=== PATIENT | male | born 1955 | race Caucasian/White ===

== ENCOUNTER 2022-10-31 08:28 | Outpatient (REF) | payer OTHER, SELFPAY ==
--- NOTE | ~2022-10-31 | CT_ITS ---
EXAMINATION: CT HEAD WITHOUT CONTRAST CLINICAL INFORMATION: Concussion. COMPARISON: None. TECHNIQUE: Contiguous axial imaging was performed from the skullbase to vertex without intravenous administration of contrast. This CT examination was performed using dose optimization techniques as appropriate, variously including the following: *Automated exposure control *Adjustment of mA and/or kV according to patient size (this includes techniques or standardized protocols for targeted exams where dose is matched to indication/reason for exam; i.e. extremities or head) *Use of iterative reconstruction technique DLP: 882 mGy-cm. FINDINGS: There is no evidence of acute intracranial hemorrhage or territorial infarction. No abnormal mass effect or midline shift is seen. Mijares to white matter differentiation is well preserved. No extra-axial fluid collections are identified. Moderate diffuse parenchymal volume loss noted with concordant ex vacuo prominence of the ventricles. There are mild small vessel ischemic changes in the cerebral white matter. The osseous structures and soft tissues are normal. The mastoid air cells and visualized portions of the paranasal sinuses are well aerated. CT/CT head/brain wo IV con IMPRESSION: No acute intracranial pathology.
== END 2022-10-31 08:29 | disposition home or self-care (01) ==
LOC: HO.CT 08:28
PROVIDERS: PCP Internal Medicine; Visit Provider Psychiatry & Neurology Neurology
DX: S06.0X9A Concussion with loss of consciousness of unspecified duration, initial encounter (principal)
CPT/HCPCS: 70450

== ENCOUNTER 2025-03-08 10:03 | Outpatient (AMB) | payer OTHER, SELFPAY ==
--- OUTSIDE RECORDS SUMMARY | 2024-04-15 05:30 | XMS_ITS ---
Author Organization [facility] Address [address] [place] [address] Care Team Providers Care Crusher Feeder Name Role Phone SHIRLENE WATKINS Primary Care Provider REASON FOR VISIT 41/ 2mo Encounters Encounter Location Date Provider Diagnosis [facility] [address] [place] [address] 04/15/2024 SHIRLENE WATKINS Plan Of Treatment No Information Progress Notes * ABDIFATAH FENTONDOB: [birth year] (69 yo M)Acc No.[id number]:04/15/2024 Progress Notes Patient: ABDIFATAH ANTONIO Provider: Brianna WATKINS M.D. :1955 A ge:68 Y S ex:Male Date:04/15/2024 Address:[address] [place], [place] [id number] Subjective: * Chief Complaints: * 4 1/ 2mo Billing Information: * Procedure Codes: * Electronic signature of SHIRLENE WATKINS MD on 03/08/2025 at 12:24 PM EST Sign off status: Pending * Provider: Brianna WATKINS M.D. Date: 0 04/15/2024 Generated for Marga ng/Fadarleneg/eTransmitting on: 1 05/09/2024 12:24 PM EST
--- NOTE | 2025-03-08 10:07 | A.OFFVIS_ITS ---
Intake Visit Reasons: BFT 6m Allergies No Known Allergies Allergy (Verified 03/08/25 10:12) Medication List - Last Reconciled 03/08/25 by Rufina Adkins CNP cholecalciferol (vitamin D3) 50 mcg PO clozapine 200 mg PO QPM clozapine 100 mg PO QAM divalproex 1,000 mg PO BEDTIME levothyroxine 200 mcg PO lorazepam 0.5 mg PO BID PRN metformin 1,000 mg PO BID metoprolol succinate ER 50 mg PO DAILY omega-3 acid ethyl esters 2 caps PO BID omeprazole 20 mg PO DAILY primidone 50 mg PO BEDTIME simvastatin 20 mg PO BEDTIME HPI Comments Details: He was doing okay. Tremor was controlled with primidone. No functional impairment. No difficulty eating, drinking, or swallowing. Numbness to right great toe was about the same. No numbness to LLE. Blood sugar this morning was around 160. He slipped and fell on ice yesterday and landed on left knee. Left knee was still painful today and slightly swollen. Hx of neck pain and stiffness since fall in 10/2022, for which he was taking Advil daily. Had slight numbness in right foot and occasional transient pain. Had some left occipital headaches and some pain in the upper part of his cervical spine in the past. Thinks that his memory is not as sharp. He has 20+ year history of tremors which runs in his family. [facility] Medical History (Updated 03/08/25 @ 10:20 by Rufina Adkins CNP) Mood disorder Hypothyroidism Hyperlipidemia Hypertension Diabetes Family History (Updated 03/08/25 @ 10:12 by Rufina Adkins CNP) Mother Tremor Brother Tremor Review of Systems Const Denies chills, Denies daytime sleepiness, Denies difficulty sleeping, Denies fatigue, Denies fever(s), Denies frequent falls, Denies headache(s), Denies increased appetite, Denies poor appetite, Denies snoring, Denies weakness, Denies weight gain and Denies weight loss Eyes Denies loss of vision ENT Denies vertigo, Denies dizziness, Denies headache(s) and Reports neck pain Card Denies chest pain at rest, Denies chest pain with activity, Denies syncope, Denies leg edema, Denies palpitations, Denies dyspnea and Denies dyspnea on exertion Resp Denies cough, Denies dyspnea, Denies dyspnea on exertion and Denies snoring GI Denies abdominal pain, Denies constipation, Denies heartburn, Denies diarrhea and Denies nausea Denies urinary frequency, Denies urinary incontinence and Denies urinary urgency Musc Denies abnormal gait, Denies back pain, Denies myalgias, Denies arthralgias, Reports neck pain, Reports numbness and Reports tingling Neuro Denies abnormal gait, Denies vertigo, Denies dizziness, Denies syncope, Denies frequent falls, Denies headache(s), Denies lack of coordination, Denies loss of vision, Reports memory loss, Reports numbness, Denies Other visual disturbances, Denies restless legs, Denies seizure-like activity, Reports tingling, Denies paresthesias, Reports tremor(s) and Denies weakness Psych Reports anxiety, Reports depression, Denies auditory hallucinations, Reports memory loss and Denies visual hallucinations Endo Denies fatigue and Denies palpitations Physical Exam Const Other: General Appearance:? normal, in no acute distress. Heart:? S1, S2 normal, no murmurs. Lungs:? clear anteriorly and posteriorly. Musculoskeletal:? normal. Extremities:? L knee slightly swollen. Psych:? alert, oriented, cognitive function intact, cooperative with exam. Neuro Other: Abnormal Neurological Findings:?Medium frequency, low amplitude tremors of extended UE, increased on finger to nose. No rest tremor or rigidity. Walking with cane. Mental Status: alert and oriented X 3. Normal attention, orientation, memory, and affect. Cranial Nerves: Pupils are equal, round, and reactive to light. External ocular muscles are intact. Visual ceballos are full, no ptosis. Face is symmetrical, no facial weakness or droop. Facial sensations are normal. Tongue protrudes in midline. Palate elevates symmetrically. Shoulder shrugging is normal Motor Examination: Normal muscle tone, bulk and strength. No atrophy or fasciculations. No drift of the extended upper extremities. DTR 2+. Plantars are flexor. Sensory Exam: Mild impaired pin prick. Normal light touch, temperature, vibration, and joint-position sensations. Rhomberg sign is absent. Coordination: No ataxia. No titubation. Gait Exam: With cane. Cerebellar Signs: [id number] as above. Extrapyramidal System: Tremor as above. No rigidity with normal facial expressions. No bradykinesia. No bradyphrenia. Normal arm swing and posture. No propulsion or retropulsion. Speech: Normal. Results Reviewed Results Reviewed: 01/07/23 NCV/EMG LE Borderline slowing nerve conduction study in the lower extremities. EMG of the right L4-S1 innervated muscles is consistent with neuropathic changes. Assessment & Plan Assessment & Plan (1) Benign familial tremor: Code(s): G25.0 - Essential tremor Category: Medical Plan: Continue primidone 50mg 1 tablet at bedtime. Follow up in 6 months or sooner as needed. (2) Peripheral neuropathy: Code(s): G62.9 - Polyneuropathy, unspecified Category: Medical Qualifiers: Peripheral neuropathy type: polyneuropathy, unspecified Qualified Code(s): G62.9 - Polyneuropathy, unspecified Plan: Stay physically active, continue to use cane for additional support. (3) Left knee pain: Code(s): M25.562 - Pain in left knee Category: Medical Qualifiers: Chronicity: acute Qualified Code(s): M25.562 - Pain in left knee Plan: He slipped on fell on ice yesterday. Left knee was slightly swollen and painful. XR L knee ordered. Plan . Orders: Orders XR knee LT 3V Today M25.562 - Pain in left knee Medications: New primidone 50 mg PO BEDTIME 90 tabs 1RF 90 days Coding Level of Care Code Est Pt Level 4 (19553) Diagnoses Benign familial tremor G25.0 Peripheral polyneuropathy G62.9 Peripheral neuropathy type: polyneuropathy, unspecified Acute pain of left knee M25.562 Chronicity: acute
--- OUTSIDE RECORDS SUMMARY | 2025-03-08 12:23 | XMS_ITS | Clinical Summary ---
Author Organization [facility] Address [address] [place] [address] Phone Care Team Providers Care Corporate Learning Consultant Name Role Phone Benjamin Merrill MD Primary Care Provider [phone] Allergies Active Allergy Reactions Criticality Noted Date Comments Haloperidol Unknown 11/04/2024 Medications oxyCODONE (ROXICODONE) 5 mg immediate release tabletIndicatio ns:Strain of lumbar region, initial encounter Take 1 tablet (5 mg total) by mouth every 6 (six) hours if needed for severe pain. Max Daily Amount: 20 mg 10 each 5 Active lidocaine 4 % patch Apply 1 patch topically 1 (one) time each day if needed for mild pain. 15 each 5 Active methocarbamoL (ROBAXIN) 500 mg tablet Take 2 tablets (1,000 mg total) by mouth 2 (two) times a day if needed for muscle spasms for up to 14 days. 28 tablet 5 Active Active Problems No known active problems Medical History Medical History Date Comments Diabetes mellitus ([facility] V24, [facility] V28) Sciatica Social History Tobacco Use Types Packs/Day Years Used Date Smoking Tobacco: Never Assessed Sex and Gender Information Value Date Recorded Sex Assigned at Not on file Legal Sex Male 8:18 PM EST Gender Identity Not on file Sexual Orientation Not on file Last Filed Vital Signs Vital Sign Reading Time Taken Comments Blood Pressure 135/95 11/05/2024 6:32 PM EDT Pulse 88 11/05/2024 6:32 PM EDT Temperature 36.8 C (98.2 F) 11/05/2024 3:08 PM EDT Respiratory Rate 16 11/05/2024 6:32 PM EDT Oxygen Saturation 100% 11/05/2024 6:32 PM EDT Inhaled Oxygen Concentration - - Weight 96.2 kg (212 lb) 11/05/2024 3:08 PM EDT Height 170.2 cm (5' 7 ) 11/05/2024 3:08 PM EDT Body Mass Index 33.2 11/05/2024 3:08 PM EDT Plan of Treatment Health Maintenance Due Date Last Done Comments Colorectal Cancer Screening: Colonoscopy 1955 DTaP,Tdap,and Td Vaccines (1 - Tdap) 1976 Pneumococcal Vaccine: 50+ Years (1 of 1 - PCV) 08/31/2007 Zoster Vaccines (1 of 2) 08/31/2007 Abdominal Aortic Aneurysm (AAA) Screen 02/23/2022 Cholesterol Screening (Lipid Panel) 02/23/2022 Hepatitis C Screening 02/23/2022 Medicare Annual Wellness Visit 02/23/2022 Social Influencers of Health Screening 02/23/2022 Falls Risk Assessment 2022 Depression Screening 03/24/2024 COVID-19 Vaccine (3 - 2024-2 6 season) 2024 08/17/2020, 07/26/2020 Influenza Vaccine (#1) 2024 02/05/2024 RSV Immunization Adult Patients (1 - 1-dose 75+ series) 2032 HIB Vaccines Aged Out No longer eligi ble based on patient's age to complete this topic HPV Vaccines Aged Out No longer eligi ble based on patient's age to complete this topic Hepatitis A Vaccines Aged Out No long er eligible based on patient's age to complete this topic Hepatitis B Vaccines Aged Out No long er eligible based on patient's age to complete this topic IPV Vaccines Aged Out No longer eligi ble based on patient's age to complete this topic MMR Vaccines Aged Out No longer eligi ble based on patient's age to complete this topic Meningococcal ACWY Vaccine Aged Out N o longer eligible based on patient's age to complete this topic Meningococcal B Vaccine Aged Out No l onger eligible based on patient's age to complete this topic RSV Immunization Patients Under 20 months Aged Out No longer eligible b ased on patient's age to complete this topic Varicella Vaccines Aged Out No longer eligible based on patient's age to complete this topic Insurance [place] [facility] Member Subscriber Plan / Payer (Ef fective 1899-Present) Name:Zack Fenton Relation to Subscriber:Self Name:Zack Fenton Payer ID:[id number] Group ID:[id number] Type:Not on file Address: [address] [place] [address] [facility] [employer] Member Subscriber Plan / Payer (Ef fective 2024-Present) Name:Zack Fenton Relation to Subscriber:Self Name:Zack Fenton Payer ID:[id number] Group ID:[id number] Type:Not on file Address: [address] [place] [id number] Advance Directives Documents on File Type Date Recorded 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
--- OUTSIDE RECORDS SUMMARY | 2025-03-08 12:24 | XMS_ITS | Patient Health Record ---
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 Name Role Phone SHIRLENE WATKINS Primary Care Provider [phone] BRITNEY WEAVER Unavailable [phone] Allergies Allergen (clinical drug ingredient) Drug/Non Drug Allergy documented on EMR Reaction Allergy Type Onset Date Status haloperidol Haloperidol Unknown Drug Allergy Act jacklyn haloperidol Haloperidol Lactate Unknown Drug Allergy Active Reason For Referral No Information Medications Medication SIG (Take, Route, Frequency, Duration) Notes Start Date End Date Status Timolol Maleate 0.5 % Solution 1 drop into affected eye Ophthalmic Twice a day 11/18/2023 Active OneTouch Ultra - Strip as directed In Vi tro Once a day; Duration: 90 days Prescriber's MASS ALEXI: [id number] 11/05/2022 Active LORazepam 0.5 MG Tablet 1 tablet as need ed Orally Twice a day Active OneTouch UltraSoft 2 Lancets - Miscellaneous as directed applied to skin Once a day; Duration: 90 days Prescriber's MASS ALEXI: [id number] 11/05/2022 Active Depakote 500 MG Tablet Delayed Release take 2 tablet by ORAL route every bedtime Oral Active cloZAPine 200 MG Tablet 1 tablet Oral On ce a day at night Active tiZANidine HCl 2 MG Tablet 1 tablet at bedtime as needed Orally Once a day; Duration: 30 day(s) Active Omeprazole 20 MG Capsule Delayed Release TAKE ONE CAPSULE BY MOUTH EVERY DAY BEFORE A MEAL ORAL ONCE A DAY 90 DAYS Active Benztropine Mesylate 1 MG Tablet take 1 tablet (1MG) by ORAL route 2 times every day Oral Once a day 09/23/2011 Active Igreb-6-eqok Ethyl Esters 1 GM Capsule TAKE 2 CAPSULES BY MOUTH TWICE A DAY FOR 90 DAYS; Duration: 90 Active Primidone 50 MG Tablet 1 tablet Orally O nce a day; Duration: 30 day(s) Active Levothyroxine Sodium 200 MCG Tablet 1 tab(s) Oral once a day 5 days a week; Duration: 90 days 02/11/2022 Active cloZAPine 100 MG Tablet 1 tablet Orally Once a day in the morning Active metFORMIN HCl 1000 MG Tablet 1 tablet with a meal Orally 2 times daily; Duration: 90 days 10/25/2021 Active Metoprolol Succinate ER 50 MG Tablet Extended Release 24 Hour 1 tablet Orally Once a day 07/30/2022 Active Tradjenta 5 MG Tablet 1 tablet Orally On ce a day Active Vitamin D3 Super Strength 50 MCG (1999 UT) Tablet 1 tablet Oral Once a day; Duration: 90 days 07/30/2022 Active Simvastatin 20 MG Tablet 1 tablet in the evening Oral once a day; Duration: 90 days 07/30/2022 Active Happy Kidz w/Device Kit USE DIRECTED ONCE DAILY; Duration: 1 Prescriber's MASS ALEXI: [id number] Active Immunizations Vaccine Route Administration Date Status Comme nts Influenza, Fluzone HD 65+ IM Intramuscular 02/05/2024 Admi nistered Pfizer COVID-19,mRNA, LNP-S, PF, 30mcg/0.3mL dose Unknown 07/25/2020 Administered SARSCOV2 VAC 30 MCG TRS-SUCR Pfizer Unknown 08/15/2020 Administered Td (Tetanus Diphtheria) Unknown 10/22/2006 Administered Social History Tobacco Use: Social History Observation Description Date Details (start date - stop date) Never Smoker NA - NA Social History Drug/Alcohol: Social Info Question Answer Notes Alcohol Screen Did you have a drink containing alcohol in the past year? No Points 0 Interpretation Negative Tobacco Use: Social Info Question Answer Notes Smoking Are you a: never smoker Additional Details Category Social Info Options Details General Occupation: Retired asbestos exposure: no alcohol use: no drug use: no Coffee/Tea/Soda: no Marital Status single smokers in household no Problems Problem Type SNOMED Code ICD Code Onset Dates Problem Status W/U Status Risk Notes Problem Essential hypertension (16581706) Essential (primary) hypertension (I10) Active confirmed Problem Gastroesophageal reflux disease (320415936) GERD without esophagitis (K21.9) Active confirmed Problem Acquired hypothyroidism (231094894) Acquired hypothyroidism (E03.9) Active confirmed Problem Type II diabetes mellitus without complication (489215264) Type 2 diabetes mellitus without complication, without long-term current use of insulin (E11.9) Active confirmed Problem Persistent depressive disorder (2183660375) Persistent depressive disorder (F34.1) Active confirmed Problem Primary open angle glaucoma (disorder) (38202358) Chronic glaucoma (H40.1190) Active confirmed Problem Degeneration of intervertebral disc of lumbar region with discogenic back pain (M51.360) Active confirmed Problem Mixed hyperlipidemia (227338795) Mixed hyperlipidemia (E78.2) 03/30/19 10 Active confirmed Vital Signs Blood pressure diastolic 60 mm Hg 02/01/2025 197 Height 65.5 in 02/01/2025 197 Blood pressure systolic 124 mm Hg 02/01/2025 197 Weight 197 lbs 02/01/2025 197 BMI 32.28 kg/m2 02/01/2025 197 Encounters Encounter Location Date Provider Diagnosis [place] [id number] 05/13/2024 [facility] Type 2 diabetes mellitus without complication, without long-term current use of insulin E11.9 ; Essential (primary) hypertension I10 ; Acquired hypothyroidism E03.9 ; Persistent depressive disorder F34.1 and Strain of lumbar region, initial encounter S39.012A [place] [id number] 08/10/2024 [facility] Type 2 diabetes mellitus without complication, without long-term current use of insulin E11.9 ; Essential (primary) hypertension I10 ; Acquired hypothyroidism E03.9 and Persistent depressive disorder F34.1 [place] [id number] 11/10/2024 [facility] Type 2 diabetes mellitus without complication, without long-term current use of insulin E11.9 ; Degeneration of intervertebral disc of lumbar region with discogenic back pain M51.360 and Essential (primary) hypertension I10 [address] [phone] 02/01/2025 [facility] Type 2 diabetes mellitus without complication, without long-term current use of insulin E11.9 ; GERD without esophagitis K21.9 ; Rectal pain K62.89 ; Colon cancer screening Z12.11 and Essential (primary) hypertension I10 [facility] [address] [place] [phone] 02/10/2025 [facility] [address] [place] [phone] 03/12/2024 [facility] [address] [place] [phone] 04/13/2024 [facility] [address] [place] [phone] 04/15/2024 [facility] Essential (primary) hypertension I10 ; Type 2 diabetes mellitus without complication, without long-term current use of insulin E11.9 and Mixed hyperlipidemia E78.2 [facility] [address] [place] [phone] 05/13/2024 [facility] [address] [place] [phone] 05/14/2024 [facility] [address] [place] [id number] 06/29/2024 [facility] [address] [place] [phone] 08/11/2024 [facility] [address] [place] [phone] 08/12/2024 [facility] Hyperkalemia E87.5 [facility] [address] [place] [phone] 11/01/2024 [facility] [address] [place] [id number] 11/05/2024 BRITNEY WEAVER [facility] [address] [place] [phone] 11/11/2024 [facility] [address] [place] [phone] 12/01/2024 [facility] [address] [place] [phone] 01/03/2025 [facility] Type 2 diabetes mellitus without complication, without long-term current use of insulin E11.9 [facility] [address] [place] [phone] 01/04/2025 [facility] Assessments Encounter Date Diagnosis (ICD Code) Assessment Notes Treatment Notes Treatment Clinical Notes Section Notes 08/10/2024 Essential (primary) hypertension (ICD-10 - I10) 1. Diabetes: Last A1c was slightly elevated 7.2. Will recheck today and current Tradjenta and metformin 2. Hypertension: Stable on low-dose metoprolol. Follow 3. Hypothyroidism: TSH was stable on recent labs. Will maintain current 5-day a week dosing. 4. Depression: Reports stable mood. Will follow along with psychiatry 08/12/2024 Hyperkalemia (ICD-10 - E87.5) 11/10/2024 Type 2 diabetes mellitus without complication, without long-term current use of insulin (ICD-10 - E11.9) 1. Type 2 diabetes mellitus: Will update A1c on current metformin 2. Lumbar degenerative disc disease: Would benefit from physical therapy. He will check with his home care nurse as to whether there are options through that program. We will try Robaxin cautiously at bedtime but if there is any sedation I have instructed that he needs to let me know and we will discontinue. He should continue taking Tylenol 3. Hypertension: Stable on current metoprolol. No changes made today 11/10/2024 Degeneration of intervertebral disc of lumbar region with discogenic back pain (ICD-10 - M51.360) 1. Type 2 diabetes mellitus: Will update A1c on current metformin 2. Lumbar degenerative disc disease: Would benefit from physical therapy. He will check with his home care nurse as to whether there are options through that program. We will try Robaxin cautiously at bedtime but if there is any sedation I have instructed that he needs to let me know and we will discontinue. He should continue taking Tylenol 3. Hypertension: Stable on current metoprolol. No changes made today 01/03/2025 Type 2 diabetes mellitus without complication, without long-term current use of insulin (ICD-10 - E11.9) 02/01/2025 GERD without esophagitis (ICD-10 - K21.9) 1. Type 2 diabetes mellitus: A1c was borderline at 7.2 last checked. Work at diet and recheck at his next visit 2. Gastroesophageal reflux: Stable on current omeprazole. Will continue same 3. Rectal pain: He refused evaluation today. Since his symptoms are resolved 4. Colon cancer screening: Agrees to Cologuard today after some persuasion. He has been refusing colon screening right alone. 5. Hypertension: Stable on present metoprolol. No changes made today 6. Flu shot given today 02/01/2025 Type 2 diabetes mellitus without complication, without long-term current use of insulin (ICD-10 - E11.9) 1. Type 2 diabetes mellitus: A1c was borderline at 7.2 last checked. Work at diet and recheck at his next visit 2. Gastroesophageal reflux: Stable on current omeprazole. Will continue same 3. Rectal pain: He refused evaluation today. Since his symptoms are resolved 4. Colon cancer screening: Agrees to Cologuard today after some persuasion. He has been refusing colon screening right alone. 5. Hypertension: Stable on present metoprolol. No changes made today 6. Flu shot given today 08/10/2024 Type 2 diabetes mellitus without complication, without long-term current use of insulin (ICD-10 - E11.9) 1. Diabetes: Last A1c was slightly elevated 7.2. Will recheck today and current Tradjenta and metformin 2. Hypertension: Stable on low-dose metoprolol. Follow 3. Hypothyroidism: TSH was stable on recent labs. Will maintain current 5-day a week dosing. 4. Depression: Reports stable mood. Will follow along with psychiatry 05/13/2024 Essential (primary) hypertension (ICD-10 - I10) 1. Type 2 diabetes mellitus: Due for A1c. Will update in current therapy. Last A1c was 6.9 2. Hypertension: Well-controlled on present medication. No changes made today 3. Hypothyroidism: TSH was mildly suppressed on last lab work. Will repeat today to help decide whether dosing needs to be adjusted 4. Depression: Stable on present meds from psychiatry. Will follow along 5. Lumbar strain: Discussed possible physical therapy deep but he does not feel he can get transportation this time. Prefers to give this some time 05/13/2024 Type 2 diabetes mellitus without complication, without long-term current use of insulin (ICD-10 - E11.9) 1. Type 2 diabetes mellitus: Due for A1c. Will update in current therapy. Last A1c was 6.9 2. Hypertension: Well-controlled on present medication. No changes made today 3. Hypothyroidism: TSH was mildly suppressed on last lab work. Will repeat today to help decide whether dosing needs to be adjusted 4. Depression: Stable on present meds from psychiatry. Will follow along 5. Lumbar strain: Discussed possible physical therapy deep but he does not feel he can get transportation this time. Prefers to give this some time 04/15/2024 Essential (primary) hypertension (ICD-10 - I10) 04/15/2024 Type 2 diabetes mellitus without complication, without long-term current use of insulin (ICD-10 - E11.9) 05/13/2024 Acquired hypothyroidism (ICD-10 - E03.9) 1. Type 2 diabetes mellitus: Due for A1c. Will update in current therapy. Last A1c was 6.9 2. Hypertension: Well-controlled on present medication. No changes made today 3. Hypothyroidism: TSH was mildly suppressed on last lab work. Will repeat today to help decide whether dosing needs to be adjusted 4. Depression: Stable on present meds from psychiatry. Will follow along 5. Lumbar strain: Discussed possible physical therapy deep but he does not feel he can get transportation this time. Prefers to give this some time 02/01/2025 Rectal pain (ICD-10 - K62.89) 1. Type 2 diabetes mellitus: A1c was borderline at 7.2 last checked. Work at diet and recheck at his next visit 2. Gastroesophageal reflux: Stable on current omeprazole. Will continue same 3. Rectal pain: He refused evaluation today. Since his symptoms are resolved 4. Colon cancer screening: Agrees to Cologuard today after some persuasion. He has been refusing colon screening right alone. 5. Hypertension: Stable on present metoprolol. No changes made today 6. Flu shot given today 11/10/2024 Essential (primary) hypertension (ICD-10 - I10) 1. Type 2 diabetes mellitus: Will update A1c on current metformin 2. Lumbar degenerative disc disease: Would benefit from physical therapy. He will check with his home care nurse as to whether there are options through that program. We will try Robaxin cautiously at bedtime but if there is any sedation I have instructed that he needs to let me know and we will discontinue. He should continue taking Tylenol 3. Hypertension: Stable on current metoprolol. No changes made today 08/10/2024 Acquired hypothyroidism (ICD-10 - E03.9) 1. Diabetes: Last A1c was slightly elevated 7.2. Will recheck today and current Tradjenta and metformin 2. Hypertension: Stable on low-dose metoprolol. Follow 3. Hypothyroidism: TSH was stable on recent labs. Will maintain current 5-day a week dosing. 4. Depression: Reports stable mood. Will follow along with psychiatry 02/01/2025 Colon cancer screening (ICD-10 - Z12.11) 1. Type 2 diabetes mellitus: A1c was borderline at 7.2 last checked. Work at diet and recheck at his next visit 2. Gastroesophageal reflux: Stable on current omeprazole. Will continue same 3. Rectal pain: He refused evaluation today. Since his symptoms are resolved 4. [facility]. He has been refusing colon screening right alone. 5. Hypertension: Stable on present metoprolol. No changes made today 6. Flu shot given today 08/10/2024 Persistent depressive disorder (ICD-10 - F34.1) 1. Diabetes: Last A1c was slightly elevated 7.2. Will recheck today and current Tradjenta and metformin 2. Hypertension: Stable on low-dose metoprolol. Follow 3. Hypothyroidism: TSH was stable on recent labs. Will maintain current 5-day a week dosing. 4. Depression: Reports stable mood. Will follow along with psychiatry 05/13/2024 Persistent depressive disorder (ICD-10 - F34.1) 1. Type 2 diabetes mellitus: Due for A1c. Will update in current therapy. Last A1c was 6.9 2. Hypertension: Well-controlled on present medication. No changes made today 3. Hypothyroidism: TSH was mildly suppressed on last lab work. Will repeat today to help decide whether dosing needs to be adjusted 4. Depression: Stable on present meds from psychiatry. Will follow along 5. Lumbar strain: Discussed possible physical therapy deep but he does not feel he can get transportation this time. Prefers to give this some time 04/15/2024 Mixed hyperlipidemia (ICD-10 - E78.2) 05/13/2024 Strain of lumbar region, initial encounter (ICD-10 - S39.012A) 1. Type 2 diabetes mellitus: Due for A1c. Will update in current therapy. Last A1c was 6.9 2. Hypertension: Well-controlled on present medication. No changes made today 3. Hypothyroidism: TSH was mildly suppressed on last lab work. Will repeat today to help decide whether dosing needs to be adjusted 4. Depression: Stable on present meds from psychiatry. Will follow along 5. Lumbar strain: Discussed possible physical therapy deep but he does not feel he can get transportation this time. Prefers to give this some time 02/01/2025 Essential (primary) hypertension (ICD-10 - I10) 1. Type 2 diabetes mellitus: A1c was borderline at 7.2 last checked. Work at diet and recheck at his next visit 2. Gastroesophageal reflux: Stable on current omeprazole. Will continue same 3. Rectal pain: He refused evaluation today. Since his symptoms are resolved 4. Colon cancer screening: Agrees to Cologuard today after some persuasion. He has been refusing colon screening right alone. 5. Hypertension: Stable on present metoprolol. No changes made today 6. Flu shot given today Plan Of Treatment No Information Insurance Providers Payer Name Payer Address Payer Phone Subscriber Number Group Number Insured Name Patient Relationship to Insured Coverage Start Date Coverage End Date [facility] Medicare advantage [address] [place] [id number] NOAH FENTON Kimani Self - patient is the insured [address] [employer] [address] [place] [address] [id number] JOSSY NOAH Kimani Self - patient is the insured 6 [employer] [address] [place] [address] [id number] NOAH FENTON Kimani Self - patient is the insured Medical (General) History Medical History History ICD Code Elevated lipids, obesity, diabetes mellitus, Problems: Gastroesophageal r eflux disease, Added Date: 12/11/2014, Onset Date: 01/03/2010:Active Problems: Hypothyroidism, Ad ded Date: 12/11/2014, Onset Date: 03/30/2009:Active Problems: Malaise and fatigu e, Added Date: 12/11/2014, Onset Date: 03/30/2009:Active Problems: Psychotic disorder , Added Date: 12/11/2014, Onset Date: 03/30/2009:Active HCP- None Surgical History Surgery Date(Month/Year) Left Knee Pain, Sx_Procedure : arthrosco py 1996 Left Shoulder Pain, Sx_Procedure : arthr oscopy 1991 Hospitalization History Reason Date(Month/Year) [facility] - right side sciatica pain 10/22 06/15
== END 2025-03-08 10:23 | disposition home or self-care (01) ==
LOC: HO.HSM 10:04
PROVIDERS: PCP Internal Medicine; Referring Provider Internal Medicine; Visit Provider Registered Nurse
DX: G25.0 Essential tremor (principal); G62.9 Polyneuropathy, unspecified; M25.562 Pain in left knee
CPT/HCPCS: 99214

== ENCOUNTER → 2025-03-08 10:03 | Outpatient (BNVA) | payer OTHER, SELFPAY | PROVIDERS: PCP Internal Medicine; Referring Provider Internal Medicine; Visit Provider Registered Nurse | DX: G25.0 Essential tremor (principal); G62.9 Polyneuropathy, unspecified; M25.562 Pain in left knee; Z79.899 Other long term (current) drug therapy | CPT/HCPCS: 99212 ==